=== PATIENT | female | born 1940 | race Two or more races ===

== ENCOUNTER → 2017-09-02 | Outpatient (CLI) | payer OTHER ==
[~2017-09-02] MED LIST: ACETAZOLAMIDE250 MG; FLONASE16 GM; KLOR-CON M2020 MEQ; LEVOTHYROXINE SO1 GM; LOSARTAN-HCTZ1 EAC1; MUCINEX DM TABL1 BOX; POTASSIUM99 M2; SIMVASTATIN40 MG; XARELTO10 MG
== END | disposition home or self-care (01) ==
LOC: NUTRICION 10:00
DX: I10 Essential (primary) hypertension (principal); E66.3 Overweight

== ENCOUNTER → 2017-09-17 | Emergency (ER) | payer OTHER ==
[~2017-09-17] VITALS: Ht 160 cm; Wt 72.6 kg
== END | disposition home or self-care (01) ==
LOC: ER 10:27
DX: R04.0 Epistaxis (principal)

== ENCOUNTER 2019-01-12 10:55 | Outpatient (CLI) | payer OTHER | END 2019-01-12 14:37 | disposition home or self-care (01) | LOC: SONOGRAMA 10:55 | DX: R31.29 Other microscopic hematuria (principal) ==

== ENCOUNTER → 2019-04-15 | Outpatient (CLI) | payer OTHER ==
[~2019-04-15] VITALS: Ht 152.4 cm; Wt 72.6 kg
== END | disposition home or self-care (01) ==
LOC: OFIC 805 11:00
DX: J31.0 Chronic rhinitis (principal); R04.0 Epistaxis; R42 Dizziness and giddiness; J34.2 Deviated nasal septum

== ENCOUNTER 2019-12-23 08:16 | Outpatient (CLI) | payer OTHER | END 2019-12-23 08:23 | disposition home or self-care (01) | LOC: LAB 08:16 | PROVIDERS: ATTEND Ophthalmology | DX: R05 Cough (principal); Z20.828 Contact with and (suspected) exposure to other viral communicable diseases ==

== ENCOUNTER 2020-01-23 10:12 | Outpatient (CLI) | payer OTHER | END 2020-01-23 14:05 | disposition home or self-care (01) | LOC: OFIC 805 10:12 | PROVIDERS: ATTEND Otolaryngology | DX: R42 Dizziness and giddiness (principal); H92.01 Otalgia, right ear; H90.41 Sensorineural hearing loss, unilateral, right ear, with unrestricted hearing on the contralateral side ==

== ENCOUNTER 2020-03-07 10:42 | Outpatient (CLI) | payer OTHER | END 2020-03-07 17:55 | disposition home or self-care (01) | LOC: OFIC 805 10:42 | PROVIDERS: ATTEND Otolaryngology | DX: H92.01 Otalgia, right ear (principal); H90.41 Sensorineural hearing loss, unilateral, right ear, with unrestricted hearing on the contralateral side ==

== ENCOUNTER 2020-03-14 11:56 | Outpatient (CLI) | payer OTHER | END 2020-03-14 13:00 | disposition home or self-care (01) | LOC: OFIC 805 11:56 | PROVIDERS: ATTEND Otolaryngology | DX: H90.41 Sensorineural hearing loss, unilateral, right ear, with unrestricted hearing on the contralateral side (principal) ==

== ENCOUNTER 2020-09-17 11:33 | Outpatient (CLI) | payer OTHER | END 2020-09-17 12:01 | disposition home or self-care (01) | LOC: LAB 11:33 | DX: U07.1 COVID-19 (principal) ==

== ENCOUNTER 2020-11-24 09:24 | Emergency (ER) | payer OTHER ==
[~2020-11-24] VITALS: Ht 160 cm; Wt 77.1 kg
[2020-11-24] MEDS ORDERED: LEVOTHYROXINE75 MCG PO (09:40)
[2020-11-24] MEDS ORDERED: LEVOTHYROXINE50 MCG PO (09:40)
== END 2020-11-24 11:46 | disposition home or self-care (01) ==
LOC: ER 09:24
DX: S01.02XA Laceration with foreign body of scalp, initial encounter (principal); M54.2 Cervicalgia; W10.8XXA Fall (on) (from) other stairs and steps, initial encounter; Y93.89 Activity, other specified; Y92.018 Other place in single-family (private) house as the place of occurrence of the external cause; Y99.8 Other external cause status

== ENCOUNTER 2021-04-23 08:00 | Outpatient (CLI) | payer OTHER ==
[~2021-04-23 08:00] MED LIST changes: +AFRIN15 ML NASAL; +AYR SALINE NA14.1 GM NASAL; +LEVOTHYROXINE50 MCG PO; +LEVOTHYROXINE75 MCG PO
== END 2021-04-23 08:30 | disposition home or self-care (01) ==
LOC: PPH VACUNA 08:00
PROVIDERS: ATTEND Emergency Medicine Pediatric Emergency Medicine
DX: Z23 Encounter for immunization (principal)

== ENCOUNTER 2021-10-28 10:50 | Outpatient (CLI) | payer OTHER | END 2021-10-28 11:12 | disposition home or self-care (01) | LOC: MAMO-SONO 10:50 | PROVIDERS: ATTEND Family Medicine | DX: N60.11 Diffuse cystic mastopathy of right breast (principal); N60.12 Diffuse cystic mastopathy of left breast ==

== ENCOUNTER 2021-10-31 08:00 | Outpatient (CLI) | payer OTHER | END 2021-10-31 08:30 | disposition home or self-care (01) | LOC: PPH VACUNA 08:00 | PROVIDERS: ATTEND Emergency Medicine Pediatric Emergency Medicine | DX: Z23 Encounter for immunization (principal) ==

== ENCOUNTER 2022-04-24 14:35 | Outpatient (CLI) | payer OTHER | END 2022-04-24 14:40 | disposition home or self-care (01) | LOC: PPH VACUNA 14:35 | PROVIDERS: ATTEND Emergency Medicine Pediatric Emergency Medicine | DX: Z23 Encounter for immunization (principal) ==

== ENCOUNTER → 2022-12-01 | Outpatient (CLI) | payer OTHER | END | disposition home or self-care (01) | LOC: NUCLEAR 09:59 | PROVIDERS: ATTEND Internal Medicine Cardiovascular Disease | DX: R00.2 Palpitations (principal); I10 Essential (primary) hypertension ==

== ENCOUNTER 2022-12-02 11:21 | Outpatient (CLI) | payer OTHER | END 2022-12-02 11:30 | disposition home or self-care (01) | LOC: MAMO-SONO 11:21 | PROVIDERS: ATTEND Family Medicine | DX: N60.11 Diffuse cystic mastopathy of right breast (principal); N60.12 Diffuse cystic mastopathy of left breast ==

== ENCOUNTER 2022-12-19 13:40 | Outpatient (CLI) | payer OTHER | END 2022-12-19 13:55 | disposition home or self-care (01) | LOC: PPH VACUNA 13:40 | PROVIDERS: ATTEND Emergency Medicine Pediatric Emergency Medicine | DX: Z23 Encounter for immunization (principal) ==

== ENCOUNTER 2024-09-16 13:40 | Outpatient (CLI) | payer OTHER | END 2024-09-16 13:41 | disposition home or self-care (01) | LOC: RAD 13:40 | PROVIDERS: ATTEND Family Medicine | DX: M17.11 Unilateral primary osteoarthritis, right knee (principal); S83.92XA Sprain of unspecified site of left knee, initial encounter; X58.XXXA Exposure to other specified factors, initial encounter; Y93.9 Activity, unspecified; Y92.9 Unspecified place or not applicable; Y99.9 Unspecified external cause status ==

== ENCOUNTER 2024-10-31 09:08 | Outpatient (CLI) | payer OTHER | END 2024-10-31 09:16 | disposition home or self-care (01) | LOC: MRI 09:08 | PROVIDERS: ATTEND Family Medicine | DX: N95.0 Postmenopausal bleeding (principal); S83.232A Complex tear of medial meniscus, current injury, left knee, initial encounter | CPT/HCPCS: 73721 ==

== ENCOUNTER 2024-12-12 12:21 | Outpatient (CLI) | payer OTHER | END 2024-12-12 12:23 | disposition home or self-care (01) | LOC: NUCLEAR 12:21 | PROVIDERS: ATTEND Family Medicine | DX: M85.80 Other specified disorders of bone density and structure, unspecified site (principal); M81.0 Age-related osteoporosis without current pathological fracture ==

== ENCOUNTER 2025-05-24 14:56 | Outpatient (CLI) | payer OTHER | END 2025-05-24 15:05 | disposition home or self-care (01) | LOC: RAD 14:56 | PROVIDERS: ATTEND Family Medicine | DX: M54.50 Low back pain, unspecified (principal) ==